=== PATIENT | female | born 1995 | race Caucasian/White ===

== ENCOUNTER 2018-03-15 12:49 | Emergency (ER) | payer OTHER ==
[~2018-03-15] VITALS: Ht 172.7 cm; Wt 83.9 kg
[~2018-03-15 12:49] MED LIST: NKM
--- NOTE | 2018-03-15 13:23 | Emergency Room Report ---
History of Present Illness General Chief Complaint: Upper Extremity Injury Source: Patient Present Illness HPI 22-year-old female presents to the emergency department complaining of 10 out of 10 in severity localized left wrist pain since last night status post mechanical trip and fall down several stairs. Patient denies hitting her head she denies loss of consciousness she denies neck or back pain. Patient reports tenderness, swelling and bruising to the dorsum and lateral portion of the left wrist she denies paresthesias in the affected extremity. She reports ability to move fingers and hand however does exacerbate some pain in the wrist area. She denies open wounds or bleeding. Denies dizziness prior to falling. Patient states that she placed a [id number] wrist splint on however she continues to have symptoms. Allergies: Coded Allergies: No Known Allergies (Unverified , 09/19/13) Patient History Past Medical History: see triage record Past Surgical History: none Pertinent Family History: none Now: No Reviewed Nursing Documentation: PMH: Agreed; PSxH: Agreed Nursing Documentation-PMH Past Medical History: No Stated History Review of Systems All Other Systems: negative except mentioned in HPI Physical Exam Vital Signs Date Time Temp Pulse Resp B/P (MAP) Pulse Ox O2 Delivery O2 Flow Rate FiO2 03/15/18 12:52 97.9 92 20 118/74 99 Room Air 97.9 Sp02 EP Interpretation: reviewed, normal General Appearance: no apparent distress, alert, GCS 15, non-toxic Head: normocephalic, atraumatic ENT: hearing grossly normal, normal voice Neck: full range of motion, no bony tend Respiratory: chest non-tender, lungs clear, normal breath sounds, speaking full sentences Cardiovascular #1: regular rate, rhythm, normal capillary refill Musculoskeletal: back normal, gait/station normal, normal range of motion, swelling - left wrist, other - bruising to dorsal and lateral left wrist. no snuff box ttp. , tender - LEft wrist Neurologic: alert, oriented x3, responsive, motor strength/tone normal, sensory intact, speech normal, grossly normal Psychiatric: judgement/insight normal Skin: normal color, no rash, warm/dry, well hydrated, other - bruising to dorsal and lateral left wrist, swelling noted. Medical Decision Making PA Attestation Dr. Hughes is my supervising Physician whom patient management has been discussed with. Diagnostic Impression: Primary Impression: Contusion of wrist, left Qualified Codes: S60.212A - Contusion of left wrist, initial encounter Additional Impression: Left wrist sprain Qualified Codes: S63.502A - Unspecified sprain of left wrist, initial encounter ER Course 22-year-old female presents to the emergency department complaining of 10 out of 10 in severity localized left wrist pain since last night status post mechanical trip and fall down several stairs. Patient denies hitting her head she denies loss of consciousness she denies neck or back pain. Patient reports tenderness, swelling and bruising to the dorsum and lateral portion of the left wrist she denies paresthesias in the affected extremity. She reports ability to move fingers and hand however does exacerbate some pain in the wrist area. She denies open wounds or bleeding. Denies dizziness prior to falling. Patient states that she placed a [id number] wrist splint on however she continues to have symptoms. Ddx considered but are not limited to Fracture, dislocation, contusion, Sprain/ Strain/Spasm Vital signs: are WNL, pt. is afebrile H&PE are most consistent with musculoskeletal injury will perform imaging to r/ o fractures/dislocations. ORDERS: - X-ray Left wrist - negative for fx, Dislocation, or significant soft tissue injury, per preliminary read in ED, and signed by KILO Huitron, my supervising physician has reviewed, and agrees with my interpretation. ED INTERVENTIONS: -Pt. declines pain medication. - Left wrist Splint applied by school laboratory technician. Pt. remains neurovascularly intact. - Left arm Sling applied by school laboratory technician. Pt. remains neurovascularly intact. DISCHARGE: At this time pt. is stable for d/c to home. Will provide printed patient care instructions, and any necessary prescriptions. Care plan and follow up instructions have been discussed with the patient prior to discharge. Other X-Ray Diagnostic Results Other X-Ray Diagnostic Results : X-Ray ordered: Left Wrist # of Views/Limited Vs Complete: 3 View Indication: Pain EP Interpretation: Yes KILO Xray: Interpretation reviewed, by supervising MD, and agrees with findings. Interpretation: no dislocation, no soft tissue swelling, no fractures Impression: No acute disease Electronically Signed by: Angie Huitron PA-C Last Vital Signs Date Time Temp Pulse Resp B/P (MAP) Pulse Ox O2 Delivery O2 Flow Rate FiO2 03/15/18 12:52 97.9 92 20 118/74 99 Room Air 97.9 Disposition: HOME, SELF-CARE Condition: Stable Scripts Hydrocodone Bit/Acetaminophen 5-325* (NORCO 5-325*) 1 Each Tablet 1 TAB ORAL Q6H PRN for For Pain, #4 TAB 0 Refills Prov: Angie Huitron 03/15/18 Ibuprofen* (MOTRIN*) 600 Mg Tablet 600 MG ORAL THREE TIMES A DAY, #20 TAB 0 Refills Prov: Angie Huitron 03/15/18 Patient Instructions: Wrist Fracture, [id number] Additional Instructions: Take medications as directed. Follow up with a Primary Care Provider in 3-5 days, even if your symptoms have resolved. --Please review list of primary care clinics, if you do not already have a primary care provider Return sooner to ED if new symptoms occur, or current symptoms become worse. Do not drink alcohol, drive, or operate heavy machinery while taking [place] as this may cause drowsiness. - Please note that this Emergency Department Report was dictated using [employer] technology software, occasionally this can lead to erroneous entry secondary to interpretation by the dictation equipment. Angie Huitron March 15, 2018 13:23
[2018-03-15] MEDS ORDERED: NORCO 5-325 TA1 EACH ORAL (13:53)
[2018-03-15] MEDS ORDERED: IBUPROFEN600 MG ORAL (13:53)
[2018-03-15 14:05] VITALS: BP 121/74
[2018-03-15 14:06] VITALS: BP 121/74
--- NOTE | 2018-03-15 14:28 | Diagnostic Imaging Report ---
Indication: Pain left wrist pain Findings: 3 views of the left wrist were obtained. No acute fractures, malalignment, erosions or periostitis are identified. Soft tissues are unremarkable. Impression: No acute findings.
== END 2018-03-15 14:10 | disposition home or self-care (01) ==
LOC: EMR 13:15
DX: S63.502A Unspecified sprain of left wrist, initial encounter (principal); W10.9XXA Fall (on) (from) unspecified stairs and steps, initial encounter; Y92.9 Unspecified place or not applicable
CPT/HCPCS: 99284

== ENCOUNTER 2018-09-08 20:25 | Emergency (ER) | payer OTHER ==
[~2018-09-08] VITALS: Ht 172.7 cm; Wt 83.9 kg
[~2018-09-08 20:25] MED LIST changes: +IBUPROFEN600 MG ORAL; +NORCO 5-325 TA1 EACH ORAL
[2018-09-08 20:45] VITALS: BP 135/93
--- NOTE | 2018-09-08 20:59 | Emergency Room Report ---
History of Present Illness General Chief Complaint: Headache Source: Patient Present Illness HPI Patient presents with complaints of what she calls migraine headache Patient reports that she has been having the headache from 2 weeks ago She was seen 2 days ago at another facility Reports feeling initially somewhat improved however The headache returned denies any neck pain or photophobia denies any chest pain Patient feels that her blood pressure has been elevating and reports 148 systolic upon arrival Denies any focal weakness denies any numbness Denies any fall or trauma Allergies: Coded Allergies: No Known Allergies (Unverified , 09/19/13) Patient History Past Medical History: see triage record Pertinent Family History: none Last Menstrual Period: Now: No Reviewed Nursing Documentation: PMH: Agreed; PSxH: Agreed Nursing Documentation-PMH Past Medical History: No History, Except For Hx Neurological Problems: Yes - migraines Review of Systems All Other Systems: negative except mentioned in HPI Physical Exam Vital Signs Date Time Temp Pulse Resp B/P (MAP) Pulse Ox O2 Delivery O2 Flow Rate FiO2 09/08/18 20:37 98.4 104 18 148/95 100 Room Air Sp02 EP Interpretation: reviewed, normal General Appearance: well appearing, no apparent distress Head: normocephalic, atraumatic Eyes: bilateral eye PERRL, bilateral eye EOMI ENT: hearing grossly normal, normal pharynx, TMs + canals normal, uvula midline Neck: full range of motion, supple, no meningismus, no bony tend Respiratory: lungs clear, normal breath sounds, no rhonchi, no respiratory distress, no retraction, no accessory muscle use Cardiovascular #1: normal peripheral pulses, regular rate, rhythm, no edema, no gallop, no JVD, no murmur Gastrointestinal: normal bowel sounds, non tender, soft, no mass, no organomegaly, non-distended, no guarding, no hernia, no pulsatile mass, no rebound Genitourinary: no CVA tenderness Musculoskeletal: normal inspection Neurologic: oriented x3, responsive, building admin III-XII nml as tested, motor strength/ tone normal, sensory intact Psychiatric: mood/affect normal Skin: normal color, no rash, warm/dry, palpation normal Lymphatic: normal inspection, no adenopathy Medical Decision Making Diagnostic Impression: Primary Impression: Headache ER Course Multiple differentials entertained including but not limited to neurological neurosurgical infectious Patient is afebrile, There are no meningeal findings Given the duration of symptoms and the patient's repeat emergency room visits CT imaging was obtained which was negative There is question of sinus pathology clinically and patient will have initial attempt of treatment Otherwise remains neurologically intact and is stable for conservative outpatient trial Labs Test 09/08/18 21:10 09/08/18 21:35 White Blood Count 12.4 K/UL (4.8-10.8) Red Blood Count 4.69 M/UL (4.20-5.40) Hemoglobin 14.1 G/DL (12.0-16.0) Hematocrit 40.1 % (37.0-47.0) Mean Corpuscular Volume 85 FL (80-99) Mean Corpuscular Hemoglobin 30.1 PG (27.0-31.0) Mean Corpuscular Hemoglobin Concent 35.3 G/DL (32.0-36.0) Red Cell Distribution Width 10.5 % (11.6-14.8) Platelet Count 345 K/UL (150-450) Mean Platelet Volume 5.3 FL (6.5-10.1) Neutrophils (%) (Auto) 61.0 % (45.0-75.0) Lymphocytes (%) (Auto) 29.6 % (20.0-45.0) Monocytes (%) (Auto) 7.4 % (1.0-10.0) Eosinophils (%) (Auto) 1.4 % (0.0-3.0) Basophils (%) (Auto) 0.7 % (0.0-2.0) Sodium Level 142 MMOL/L (136-145) Potassium Level 3.5 MMOL/L (3.5-5.1) Chloride Level 104 MMOL/L (98-107) Carbon Dioxide Level 27 MMOL/L (21-32) Anion Gap 11 mmol/L (5-15) Blood Urea Nitrogen 13 mg/dL (7-18) Creatinine 0.8 MG/DL (0.55-1.30) Estimat Glomerular Filtration Rate > 60 mL/min (>60) Glucose Level 96 MG/DL (74-106) Calcium Level 9.2 MG/DL (8.5-10.1) Urine HCG, Qualitative Negative (NEGATIVE) Rhythm Strip Diag. Results EP Interpretation: yes Rate: 88 Rhythm: NSR, no PVC's, no ectopy CT/MRI/US Diagnostic Results CT/MRI/US Diagnostic Results : Impression CT head no acute disease Last Vital Signs Date Time Temp Pulse Resp B/P (MAP) Pulse Ox O2 Delivery O2 Flow Rate FiO2 09/08/18 20:37 98.4 104 18 148/95 100 Room Air Status: improved Disposition: HOME, SELF-CARE Condition: Improved Scripts Amoxicillin* (AMOXIL*) 500 Mg Capsule 500 MG ORAL THREE TIMES A DAY, #21 CAP Prov: Justin Gutierrez DO 09/08/18 Acetaminophen With Codeine (T#3) (TYLENOL #3 TAB*) Y Tab 1 TAB ORAL Q8H PRN for For Pain, #10 TAB Prov: Justin Gutierrez DO 09/08/18 Additional Instructions: Patient is provided with the discharge instructions notified to follow up with primary doctor in the next 2-3 days otherwise return to the er with any worsening symptoms. Please note that this report is being documented using [employer] technology. This can lead to erroneous entry secondary to incorrect interpretation by the dictating instrument. Justin Gutierrez DO Sep 08, 2018 20:58
[2018-09-08] MEDS ORDERED: Sodium Chloride 500ML 500 ML IV ONE (21:00)
[2018-09-08] MEDS ORDERED: Morphine Sulfate 4mg/ml Inj (IV/IM USE ONLY) IVP ONE (21:00)
[2018-09-08] MEDS ORDERED: DiphenhydrAMINE 50mg/ml Inj IVP ONE (21:00)
[2018-09-08 21:28] LABS: BASOPHILS % (AUTO) 0.7 % (0.0-2.0); EOSINOPHILS % (AUTO) 1.4 % (0.0-3.0); HEMATOCRIT 40.1 % (37.0-47.0); HEMOGLOBIN 14.1 G/DL (12.0-16.0); LYMPHOCYTES % (AUTO) 29.6 % (20.0-45.0); MEAN CORPUSCULAR VOLUME 85 FL (80-99); MONOCYTES % (AUTO) 7.4 % (1.0-10.0); PLATELET COUNT 345 K/UL (150-450); RED BLOOD COUNT 4.69 M/UL (4.20-5.40); RED CELL DISTRIBUTION WIDTH 10.5 % (11.6-14.8); WHITE BLOOD COUNT 12.4 K/UL (4.8-10.8)
--- NOTE | 2018-09-08 21:39 | Diagnostic Imaging Report ---
EXAM: CT Head Without Intravenous Contrast CLINICAL HISTORY: PAIN TECHNIQUE: Axial computed tomography images of the head/brain without intravenous contrast. CTDI is 70.38 mGy and DLP is 1333 mGy-cm. One or more of the following dose reduction techniques were used: automated exposure control, adjustment of the mA and/or kV according to patient size, use of iterative reconstruction technique. COMPARISON: No relevant prior studies available. FINDINGS: Brain: No hemorrhage. No edema. Ventricles: No ventriculomegaly. Bones/joints: No acute fracture. Soft tissues: Unremarkable. Sinuses: No acute sinusitis. Mastoid air cells: No mastoid effusion. IMPRESSION: No acute intracranial process.
[2018-09-08 21:42] LABS: ANION GAP 11 mmol/L (5-15); BLOOD UREA NITROGEN 13 mg/dL (7-18); CALCIUM 9.2 MG/DL (8.5-10.1); CARBON DIOXIDE 27 MMOL/L (21-32); CHLORIDE 104 MMOL/L (98-107); CREATININE 0.8 MG/DL (0.55-1.30); POTASSIUM 3.5 MMOL/L (3.5-5.1); SODIUM 142 MMOL/L (136-145)
[2018-09-08] MEDS ORDERED: Metoclopramide 10mg/2ml Inj IVP ONE (22:15)
[2018-09-08] MEDS ORDERED: Ketorolac 30mg Inj IV ONE (22:15)
[2018-09-08] MEDS ORDERED: AMOXICILLIN500 MG ORAL (22:25)
[2018-09-08] MEDS ORDERED: ACETAMINOPHEN-1 EAC1 ORAL (22:25)
[2018-09-08 22:40] VITALS: BP 125/73
== END 2018-09-08 22:40 | disposition home or self-care (01) ==
LOC: EMR 21:12
DX: R51 Headache (principal)
CPT/HCPCS: 36415; 70450; 80048; 81025; 85025; 96374; 96375; 99284; J1200; J1885; J2270; J2405; J2765